=== PATIENT | female | born 1985 | race African-American/Black ===

== ENCOUNTER 2018-12-14 19:41 | Emergency (ER) | payer OTHER ==
[~2018-12-14] VITALS: Ht 149.9 cm; Wt 61.2 kg
[~2018-12-14 19:41] MED LIST: KETO10TA2 PO
== END 2018-12-14 22:00 | disposition home or self-care (01) ==
LOC: ER 19:41
DX: R30.0 Dysuria (principal)

== ENCOUNTER 2024-04-08 10:49 | Emergency (ER) | payer OTHER ==
[~2024-04-08] VITALS: Ht 149.9 cm; Wt 68.0 kg
[2024-04-08] MEDS ORDERED: RINGERS SOLUTION,LACTATED 1,000 ML IV STA (12:39)
[2024-04-08] MEDS ORDERED: FAMOtidine 10 MG/ML (4ML VIAL) IV STA (12:46)
[2024-04-08] MEDS ORDERED: ONDANSETRON HCL 2 MG/ML VIAL IV ONE (13:00)
[2024-04-08] MEDS ORDERED: ONDANSETRON HCL 2 MG/ML VIAL ONE (13:07)
[2024-04-08] MEDS ORDERED: FAMOtidine 200mg/20ml VIAL ONE (13:08)
[2024-04-08 13:19] LABS: HEMATOCRIT 45.4 % (36.0-45.00); HEMOGLOBIN 15.4 g/dL (12.0-15.00); MEAN CELL VOLUME 83.7 fL (80.00-100.00); MEAN CORPUSCULAR HEMOGLOBIN 28.3 pg (27.00-32.0); MEAN CORPUSCULAR HGB CONC 33.9 g/dl (32.0-36.0); PLATELET COUNT 224 K/uL (150-450); RED BLOOD COUNT 5.43 M/uL (4.00-6.00); RED CELL DISTRIBUTION WIDTH 13.6 % (11.5-14.5)
[2024-04-08 13:39] LABS: PH,URINE 5.5 (5.0-8.0); URINE APPEARANCE Clear; URINE BILIRRUBIN Negative (NEGATIVE); URINE BLOOD Negative; URINE COLOR Yellow; URINE GLUCOSE Negative (NEGATIVE); URINE LEUKOCYTE Negative; URINE NITRATE Negative; URINE PROTEIN 30 (NEGATIVE); URINE UROBILINOGEN 0.2 E.U./dl
[2024-04-08 13:40] LABS: URINE BACTERIA 1240.9 uL (0.0-1933); URINE EPITHELIAL CELLS 72.3 uL (0.0-38.8); URINE RBC 3.9 uL (0.0-20.8); URINE WBC 7.5 uL (0.0-23.2)
[2024-04-08 13:44] LABS: CALCIUM 9.9 mg/dL (8.5-10.1); CREATININE SERUM 1.12 mg/dL (0.55-1.02); GFR 55.04; POTASSIUM 3.69 mEq/L (3.5-5.1)
== END 2024-04-08 17:10 | disposition home or self-care (01) ==
LOC: ER 10:50
PROVIDERS: General Practice
DX: K52.89 Other specified noninfective gastroenteritis and colitis (principal); R19.7 Diarrhea, unspecified; Z20.822 Contact with and (suspected) exposure to COVID-19; I10 Essential (primary) hypertension